=== PATIENT | female | born 1995 | race Caucasian/White ===

== ENCOUNTER 2017-04-12 20:49 | Emergency (ER) | payer BC ==
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
[~2017-04-12 20:49] MED LIST: NO MEDICATIONS; VOLTAREN75 MG PO
[2017-04-12] MEDS ORDERED: ALBUTEROL17 GM (21:04)
[2017-04-12] MEDS ORDERED: BIRTH CONTROL PILL (21:04)
== END 2017-04-12 22:46 | disposition home or self-care (01) ==
LOC: SED 20:49
DX: S16.1XXA Strain of muscle, fascia and tendon at neck level, initial encounter (principal); R03.0 Elevated blood-pressure reading, without diagnosis of hypertension; Z87.891 Personal history of nicotine dependence; Y04.0XXA Assault by unarmed brawl or fight, initial encounter
CPT/HCPCS: 72125; 99284